=== PATIENT | male | born 1975 | race Caucasian/White ===

== ENCOUNTER 2023-06-29 23:10 | Emergency (ER) | payer SELFPAY ==
--- NOTE | 2023-06-30 00:07 | XRAY Report ---
PROCEDURE: Chest 1 View X-Ray INDICATIONS: cough, sob TECHNIQUE: One view of the chest was acquired. COMPARISON: None. FINDINGS: Surgical changes and devices: None. Lungs and pleura: No pleural effusions or pneumothorax. Lungs are clear. Mediastinum: Mediastinal contours appear normal. Heart size is normal. Bones and chest wall: No suspicious bony lesions. Overlying soft tissues appear unremarkable. IMPRESSION: No acute cardiopulmonary process. Reviewed by: Kelton Madrigal MD on 06/30/2023 12:06 AM PDT Approved by: Kelton Madrigal MD on 06/30/2023 12:06 AM PDT Station ID: [id number]
--- NOTE | 2023-06-30 00:24 | ED Physician Documentation ---
PD HPI HEENT - Stated complaint Stated Complaint: BODY ACHES/COUGH - Chief complaint Chief Complaint: Resp - History obtained from History obtained from: Patient - Additional information Additional information: The pt comes to the ED with CC of cough, rhinorrhea, body aches, and general malaise for the past several days. He feels that his cough has gotten deeper, and is concerned about pneumonia. No fevers or chills. Otherwise healthy. PD PAST MEDICAL HISTORY - Allergies Allergies/Adverse Reactions: Allergies Allergy/AdvReac Type Severity Reaction Status Date / Time No Known Drug Allergies Allergy Verified 06/29/23 23:19 PD ED PE NORMAL - Vitals Vital signs reviewed: Yes - General General: Alert and oriented X 3, No acute distress, Well developed/nourished - HEENT HEENT: Atraumatic, PERRL, EOMI, Moist mucous membranes, Pharynx benign - Neck Neck: Supple, no meningeal sign - Cardiac Cardiac: RRR, No murmur - Respiratory Respiratory: No respiratory distress, Clear bilaterally - Abdomen Abdomen: Soft, Non tender, Non distended - Derm Derm: Normal color, Warm and dry, No rash - Extremities Extremities: No deformity - Neuro Neuro: Alert and oriented X 3 - Psych Psych: Normal mood, Normal affect Results - Vitals Vitals: Oxygen O2 Source Room air - Labs Labs: Laboratory Tests 06/29/23 23:25 Nasal Adenovirus (PCR) NOT DETECTED Nasal B. parapertussis DNA (PCR) NOT DETECTED Nasal Coronavir 229E PCR NOT DETECTED Nasal Coronavir HKU1 PCR NOT DETECTED Nasal Coronavir NL63 PCR NOT DETECTED Nasal Coronavir OC43 PCR NOT DETECTED Nasal Enterovir/Rhinovir PCR NOT DETECTED Nasal Influenza B PCR NOT DETECTED Nasal Influenza A PCR NOT DETECTED Nasal Parainfluen 1 PCR NOT DETECTED Nasal Parainfluen 2 PCR NOT DETECTED Nasal Parainfluen 3 PCR NOT DETECTED Nasal Parainfluen 4 PCR NOT DETECTED Nasal RSV (PCR) NOT DETECTED Nasal B.pertussis DNA PCR NOT DETECTED Nasal C.pneumoniae (PCR) NOT DETECTED Tahir Human Metapneumo PCR NOT DETECTED Nasal M.pneumoniae (PCR) NOT DETECTED Nasal SARS-CoV-2 (PCR) NOT DETECTED - Rads (name of study) CXR Relevant Findings:: Final report received, See rad report (neg) PD Medical Decision Making - ED course Complexity details: reviewed results, re-evaluated patient, considered differential, d/w patient ED course: The pt was overall well-appearing, and his CXR was clear. I d/w pt that his sx are consistent with a viral illness, and will pass on their own. The pt has declined a prescription for cough medicine. We have discussed the expected timeline for illness, as well as the usual indications for return. Departure - Departure Disposition: 01 Home, Self Care Clinical Impression: Upper respiratory tract infection Qualifiers: URI type: unspecified viral URI Qualified Code(s): J06.9 - Acute upper respiratory infection, unspecified Condition: Stable Instructions: ED Viral Syndrome Comments: Your chest x-ray looks good, and has been read by the radiologist as negative. Your symptoms are very much consistent with one of the many viruses that are going around right now and causing upper respiratory symptoms. In general, these illnesses are miserable, but do not cause Serious illness and ultimately, are gotten rid of by the body itself. Antibiotics are not helpful for viral illnesses. There is no indication for antibiotics at this time. A viral panel has been sent and is pending at this time. We will call you with any Significant positive results, but you may also look for your results by going to our hospital website at [email or web address], clicking on the "my [email or web address]" tab, and signing up for the patient portal. In this way, you can monitor for even negative results. You are probably best off staying home from work until you are feeling a little better. A note has been included to this and. Be sure you get plenty of fluids and rest as much as possible. Forms: PCP List, Activity restrictions Discharge Date/Time: 06/30/23 00:35
[2023-06-30 00:27] LABS: B. PARAPERTUSSIS- RESP PCR PAN NOT DETECTED; B. PERTUSSIS- RESP PCR PANEL NOT DETECTED; C. PNEUMONIAE- RESP PCR PANEL NOT DETECTED; CORONAVIRUS 229E-RESP PCR NOT DETECTED; CORONAVIRUS HKU1-RESP PCR NOT DETECTED; CORONAVIRUS NL63-RESP PCR NOT DETECTED; CORONAVIRUS OC43-RESP PCR NOT DETECTED; HUMAN METAPNEUMOVIRUS NOT DETECTED; INFLUENZA A- RESP PCR PANEL NOT DETECTED; INFLUENZA B - RESP PCR PANEL NOT DETECTED; M. PNEUMONIAE- RESP PCR PANEL NOT DETECTED; PARAINFLUENZA VIRUS 1 NOT DETECTED; PARAINFLUENZA VIRUS 2 NOT DETECTED; PARAINFLUENZA VIRUS 3 NOT DETECTED; PARAINFLUENZA VIRUS 4 NOT DETECTED; RHINOVIRUS/ENTEROVIRUS NOT DETECTED; RSV- RESP PCR PANEL NOT DETECTED; SARS-CoV-2 -RESP PCR PANEL NOT DETECTED
[2023-06-30 01:17] VITALS: BP 128/77; O2SAT 95
== END 2023-06-30 00:35 | disposition home or self-care (01) ==
LOC: ED 23:10
DX: J06.9 Acute upper respiratory infection, unspecified (principal); Z20.822 Contact with and (suspected) exposure to COVID-19
CPT/HCPCS: 87633; 99283; 99284